=== PATIENT | male | born 1970 | race Caucasian/White ===

== ENCOUNTER 2021-04-16 05:55 | Inpatient (IN) ==
[2021-04-16 07:22] LABS: Basophils % 0.6 %; Eosinophils # 0.2 K/mcL (0.0-0.6); Eosinophils % 2.4 %; Hematocrit 42.1 % (37.5-50.1); Hemoglobin 14.4 g/dL (12.9-16.9); Immature Granulocytes % 1.3 % (0-4); Lymphocytes # 1.6 K/mcL (0.6-4.6); Mean Corpuscular HGB Conc 34.2 g/dL (31.6-35.5); Mean Corpuscular Hemoglobin 31.6 pg (28.0-33.3); Mean Corpuscular Volume 92.3 fL (83.0-100.0); Mean Platelet Volume 10.1 fL (9.4-12.4); Monocytes # 0.8 K/mcL (0.0-1.3); Monocytes % 11.2 %; Neutrophils # 4.5 K/mcL (1.6-8.9); Platelet Count 223 K/mcL (140-400); Red Blood Count 4.56 M/mcL (4.19-5.50); Red Cell Distribution Width 13.3 % (11.5-14.5); Segmented Neutrophils % 62.5 %; White Blood Count 7.1 K/mcL (4.3-11.1)
[2021-04-16] MEDS ORDERED: *HR* HYDROmorphone (PF) 1 MG/ML SYRINGE IVP ONE (07:35)
[2021-04-16 07:40] LABS: BUN/Creatinine Ratio 19 (6-26); Blood Urea Nitrogen 18 mg/dL (6-20); Calcium 9.2 mg/dL (8.6-10.3); Carbon Dioxide 27 mEq/L (23-29); Chloride 104 mEq/L (98-107); Glucose 109 mg/dL (70-105); Osmolality,Calculated 288 (280-300); Potassium 3.9 mEq/L (3.5-5.1); Sodium 138 mEq/L (136-145); eGFR For African Americans > 60 (> 60); eGFR For Non-African Americans > 60 (> 60)
[2021-04-16 07:51] LABS: Bilirubin,Urine Negative (Negative); Blood,Urine Negative (Negative); Clarity,Urine Clear (Clear); Color,Urine Light-Yellow (Yellow); Glucose,Urine (UA) Normal (Normal); Ketones,Urine Negative (Negative); Leukocyte Esterase,Urine Negative (Negative); Nitrite,Urine Negative (Negative); PH,Urine 5.5 pH Units (5.0-8.0); Protein,Urine Negative (Neg-Trace); Specific Gravity,Urine 1.019 (1.010-1.025); Urobilinogen,Urine Normal (Normal)
[2021-04-16 10:58] LABS: INR 0.9; Prothrombin Time 10.1 Seconds (9.4-12.1)
[2021-04-16 11:00] LABS: Activated Partial Thrombo Time 29.7 Seconds (26.0-36.0)
[2021-04-16 11:30] LABS: Alanine Aminotransferase 12 Units/L (7-52); Albumin/Globulin Ratio 1.7 (1.1-2.2); Alkaline Phosphatase 129 Units/L (34-104); Aspartate Amino Transferase 23 Units/L (13-39); Bilirubin,Direct 0.1 mg/dL (0.0-0.2); Bilirubin,Indirect 0.5 mg/dL (0.0-1.0); Bilirubin,Total 0.6 mg/dL (0.3-1.0); Globulin 2.4 g/dL (2.4-3.5); Total Protein 6.4 g/dL (6.4-8.9); Troponin I < 0.03 ng/mL (< 0.04)
[2021-04-16] MEDS ORDERED: Naloxone 0.4 MG/ML INJ IVP PRN (11:44)
[2021-04-16] MEDS ORDERED: Ondansetron 4 MG/2 ML VIAL IVP PRN (11:44)
[2021-04-16 11:46] LABS: Influenza A PCR Negative (Negative); Influenza B PCR Negative (Negative); Resp. Syncytial Virus PCR Negative (Negative)
[2021-04-16] MEDS ORDERED: KETAMINE IVC ONE ×2 (11:51→13:00)
[2021-04-16] MEDS ORDERED: SODIUM CHLORIDE 0.9% IVC ONE ×2 (11:51→13:00)
[2021-04-16 11:54] LABS: SARS-CoV-2 by PCR (In House) Positive (Negative)
[2021-04-16] MEDS ORDERED: Ketorolac 30 MG/ML VIAL IVP PRN (12:27)
[2021-04-16] MEDS: Carbidopa/Levodopa 25/100 TABLET PO SCH ×2 (14:00→16:48)
[2021-04-16] MEDS: *HR* HYDROmorphone 2 MG/ML SYRINGE IVP PRN ×2 (16:49→21:37)
[2021-04-16] MEDS: Carbidopa/Levodopa ER 50/200 TABLET PO SCH ×2 (16:49→19:55)
[2021-04-16] MEDS: Melatonin 3 MG TABLET PO SCH (19:54)
[2021-04-16] MEDS: *HR* Heparin 5,000 UNIT/ML VIAL SQ SCH (19:56)
[2021-04-17] MEDS: *HR* HYDROmorphone 2 MG/ML SYRINGE IVP PRN ×4 (03:06→18:42)
[2021-04-17] MEDS: Carbidopa/Levodopa ER 50/200 TABLET PO SCH ×4 (04:01→20:48)
[2021-04-17] MEDS: Carbidopa/Levodopa 25/100 TABLET PO SCH ×4 (04:01→15:57)
[2021-04-17] MEDS: *HR* Heparin 5,000 UNIT/ML VIAL SQ SCH ×2 (05:42→17:49)
[2021-04-17] MEDS ORDERED: NON-FORMULARY MEDICATION 1 EACH EACH (Omega-3/Dha/Epa/Fish Oil [Fish Oil 1,000 Mg Softgel] PO SCH (09:00)
[2021-04-17 09:09] LABS: Basophils % 0.1 %; Eosinophils % 0.2 %; Hematocrit 41.2 % (37.5-50.1); Hemoglobin 13.9 g/dL (12.9-16.9); Immature Granulocytes % 0.8 % (0-4); Lymphocytes % 9.6 %; Mean Corpuscular HGB Conc 33.7 g/dL (31.6-35.5); Mean Corpuscular Hemoglobin 31.4 pg (28.0-33.3); Mean Platelet Volume 10.3 fL (9.4-12.4); Monocytes % 8.8 %; Neutrophils # 8.7 K/mcL (1.6-8.9); Platelet Count 240 K/mcL (140-400); Red Blood Count 4.43 M/mcL (4.19-5.50); Red Cell Distribution Width 13.2 % (11.5-14.5); Segmented Neutrophils % 80.5 %
[2021-04-17 09:12] LABS: White Blood Count 10.8 K/mcL (4.3-11.1)
[2021-04-17 09:27] LABS: BUN/Creatinine Ratio 27 (6-26); Blood Urea Nitrogen 27 mg/dL (6-20); Calcium 9.1 mg/dL (8.6-10.3); Carbon Dioxide 27 mEq/L (23-29); Chloride 102 mEq/L (98-107); Glucose 112 mg/dL (70-105); Magnesium 2.1 mg/dL (1.6-2.6); Osmolality,Calculated 288 (280-300); Phosphorous 3.4 mg/dL (2.7-4.5); Potassium 4.3 mEq/L (3.5-5.1); Sodium 136 mEq/L (136-145); eGFR For African Americans > 60 (> 60); eGFR For Non-African Americans > 60 (> 60)
[2021-04-17] MEDS: Fluticasone Propionate Nasal 50 MCG/SPRAY BOTTLE NS SCH (09:59)
[2021-04-17] MEDS: Aspirin Enteric Coated 81 MG Tablet PO SCH (09:59)
[2021-04-17] MEDS: predniSONE 20 MG TABLET PO SCH (09:59)
[2021-04-17] MEDS: lisinopriL 10 MG TABLET PO SCH (10:00)
[2021-04-17] MEDS: FLUoxetine HCl 10 MG CAPSULE PO SCH (10:00)
[2021-04-17] MEDS: Metoprolol XL (24 HR) Succ 50 MG TAB.ER.24H PO SCH (10:00)
[2021-04-17] MEDS: Melatonin 3 MG TABLET PO SCH (20:48)
[2021-04-18] MEDS: *HR* HYDROmorphone 2 MG/ML SYRINGE IVP PRN (02:57)
[2021-04-18] MEDS: Carbidopa/Levodopa ER 50/200 TABLET PO SCH ×3 (02:58→20:50)
[2021-04-18] MEDS: Carbidopa/Levodopa 25/100 TABLET PO SCH ×3 (02:58→16:21)
[2021-04-18] MEDS: *HR* Heparin 5,000 UNIT/ML VIAL SQ SCH (05:07)
[2021-04-18] MEDS ORDERED: Polymyxin B Sulfate 500,000 UNIT, Sodium Chloride IRRigation 1,000 ML IR ONE (08:00)
[2021-04-18] MEDS: Aspirin Enteric Coated 81 MG Tablet PO SCH (08:41)
[2021-04-18] MEDS: lisinopriL 10 MG TABLET PO SCH (08:44)
[2021-04-18] MEDS: Metoprolol XL (24 HR) Succ 50 MG TAB.ER.24H PO SCH (08:52)
[2021-04-18] MEDS: predniSONE 20 MG TABLET PO SCH (08:52)
[2021-04-18] MEDS: Fluticasone Propionate Nasal 50 MCG/SPRAY BOTTLE NS SCH (08:57)
[2021-04-18] MEDS: FLUoxetine HCl 10 MG CAPSULE PO SCH (08:57)
[2021-04-18] MEDS ORDERED: CeFAZolin Syr 2,000MG/20 ML 2,000 MG/20 ML SYRINGE IVPB ONE (09:25)
[2021-04-18] MEDS ORDERED: Ringers Solution, Lactated 1,000 ML IVC SCH ×2 (09:30→16:57)
[2021-04-18] MEDS ORDERED: Ondansetron 4 MG/2 ML VIAL ONE (09:38)
[2021-04-18] MEDS ORDERED: Lidocaine -MPF 4% 5 ML AMPUL ONE (09:38)
[2021-04-18] MEDS ORDERED: *HR* Remifentanil 2 MG VIAL IVP ONE ×2 (09:38→13:33)
[2021-04-18] MEDS ORDERED: Lidocaine -MPF 2% 5 ML VIAL ONE (09:38)
[2021-04-18] MEDS ORDERED: tiZANidine 4 MG TABLET PO PRN (09:39)
[2021-04-18] MEDS ORDERED: *HR* Propofol 200 MG/20 ML VIAL IVP ONE (09:39)
[2021-04-18] MEDS ORDERED: *HR* OxyCODONE Immed Rel 5 MG TABLET PO ONE (09:39)
[2021-04-18] MEDS ORDERED: *HR* FentaNYL (PF) 100 MCG/2 ML VIAL ONE ×2 (09:39→11:09)
[2021-04-18] MEDS ORDERED: *HR* Midazolam HCl 2 MG/2 ML VIAL ONE (09:39)
[2021-04-18] MEDS ORDERED: *HR* FentaNYL (PF) 100 MCG/2 ML VIAL IVP PRN (09:50)
[2021-04-18] MEDS ORDERED: Albuterol 2.5 MG/3 ML NEBULIZER IH PRN (09:50)
[2021-04-18] MEDS ORDERED: DEXMEDETOMIDINE ONE (09:57)
[2021-04-18] MEDS ORDERED: Ketamine HCL *QUVA* 50mg (1mL) SYRINGE ONE (09:57)
[2021-04-18] MEDS ORDERED: NACL ONE (09:57)
[2021-04-18] MEDS: tiZANidine 4 MG TABLET PO SCH ×2 (10:10→16:21)
[2021-04-18] MEDS ORDERED: Lacri-Lube 3.5 GM TUBE ONE (10:44)
[2021-04-18] MEDS ORDERED: Vancomycin 1,000 MG VIAL ONE (14:35)
[2021-04-18] MEDS ORDERED: *HR* HYDROMORPHONE 2 MG/ML VIAL ONE (14:44)
[2021-04-18] MEDS ORDERED: Ondansetron 4 MG/2 ML VIAL IVP PRN ×2 (15:25→16:57)
[2021-04-18] MEDS: *HR* HYDROmorphone PF 0.5 MG/0.5 ML SYRINGE IVP PRN ×2 (16:00→16:19)
[2021-04-18] MEDS ORDERED: *HR* HYDROcodone/Acet 5/325 mg TABLET PO PRN (16:57)
[2021-04-18] MEDS ORDERED: Naloxone 0.4 MG/ML INJ IVP PRN (16:57)
[2021-04-18] MEDS ORDERED: Acetaminophen 325 MG TABLET PO PRN (16:57)
[2021-04-18] MEDS: *HR* OxyCODONE Immed Rel 5 MG TABLET PO PRN ×2 (17:51→22:03)
[2021-04-18] MEDS ORDERED: CeFAZolin 2 GM/120 ML BAG IVPB SCH (18:00)
[2021-04-18] MEDS: Vitamin E 200 UNIT (90MG) CAPSULE PO SCH (20:49)
[2021-04-18] MEDS: CeFAZolin 2 GM/120 ML BAG IVPB SCH (20:50)
[2021-04-18] MEDS: Famotidine 20 MG TABLET PO SCH (20:50)
[2021-04-19] MEDS ORDERED: Ketorolac 30 MG/ML VIAL IVP ONE (01:19)
[2021-04-19] MEDS: diazePAM 10 MG TABLET PO PRN ×3 (01:31→21:24)
[2021-04-19] MEDS: Carbidopa/Levodopa ER 50/200 TABLET PO SCH ×4 (03:28→20:09)
[2021-04-19] MEDS: Carbidopa/Levodopa 25/100 TABLET PO SCH ×3 (03:28→11:57)
[2021-04-19] MEDS: CeFAZolin 2 GM/120 ML BAG IVPB SCH (03:29)
[2021-04-19] MEDS: *HR* OxyCODONE Immed Rel 5 MG TABLET PO PRN ×5 (05:05→23:16)
[2021-04-19] MEDS: Multivit/Ca/Min/Fe/FA 1 TAB TABLET PO SCH (08:45)
[2021-04-19] MEDS: Vitamin E 200 UNIT (90MG) CAPSULE PO SCH ×2 (08:45→20:09)
[2021-04-19] MEDS: Famotidine 20 MG TABLET PO SCH ×2 (08:46→20:09)
[2021-04-19] MEDS: Loratadine 10 MG TABLET PO SCH (08:46)
[2021-04-19] MEDS: Fluticasone Propionate Nasal 50 MCG/SPRAY BOTTLE NS SCH (09:40)
[2021-04-19] MEDS ORDERED: Carbidopa/Levodopa 25/100 TABLET PO SCH (16:00)
[2021-04-19] MEDS ORDERED: Acetaminophen IV 500 MG/50 ML BAG IVPB SCH (18:00)
[2021-04-19] MEDS ORDERED: Acetaminophen IV 500 MG/50 ML BAG IVPB PRN (22:03)
[2021-04-20] MEDS: Carbidopa/Levodopa 25/100 TABLET PO SCH ×3 (03:22→12:25)
[2021-04-20] MEDS: Carbidopa/Levodopa ER 50/200 TABLET PO SCH ×2 (03:22→11:23)
[2021-04-20] MEDS: *HR* OxyCODONE Immed Rel 5 MG TABLET PO PRN ×3 (03:22→12:59)
[2021-04-20] MEDS: diazePAM 10 MG TABLET PO PRN (08:21)
[2021-04-20] MEDS: Vitamin E 200 UNIT (90MG) CAPSULE PO SCH (08:21)
[2021-04-20] MEDS: Famotidine 20 MG TABLET PO SCH (08:21)
[2021-04-20] MEDS: Multivit/Ca/Min/Fe/FA 1 TAB TABLET PO SCH (08:22)
[2021-04-20] MEDS: Loratadine 10 MG TABLET PO SCH (08:22)
[2021-04-20] MEDS: Fluticasone Propionate Nasal 50 MCG/SPRAY BOTTLE NS SCH (08:22)
[2021-04-20 11:10] LABS: Influenza A PCR Negative (Negative); Influenza B PCR Negative (Negative); Resp. Syncytial Virus PCR Negative (Negative)
[2021-04-20 11:11] LABS: SARS-CoV-2 by PCR (In House) Positive (Negative)
[2021-04-20 11:27] VITALS: BP 120/79; PULSE 99; TEMP 98.9; O2SAT 99
== END 2021-04-20 13:04 | DRG 28 ==
LOC: EMEROOARM 05:55 → 4WAOSI 05:55 → SUATTDRO 12:12 → 4WAOSI 13:38
PROVIDERS: ADMIT Student in an Organized Health Care Education/Training Program; ATTEND Internal Medicine

== ENCOUNTER 2021-11-13 17:08 | Observation (INO) ==
[2021-11-13] MEDS ORDERED: diazePAM 5 MG TABLET PO ONE (21:09)
[2021-11-13 21:24] LABS: Basophils % 0.5 %; Eosinophils # 0.3 K/mcL (0.0-0.6); Eosinophils % 5.5 %; Hematocrit 43.9 % (37.5-50.1); Hemoglobin 14.8 g/dL (12.9-16.9); Immature Granulocytes % 0.4 % (0-4); Lymphocytes # 1.3 K/mcL (0.6-4.6); Lymphocytes % 22.3 %; Mean Corpuscular HGB Conc 33.7 g/dL (31.6-35.5); Mean Corpuscular Hemoglobin 31.1 pg (28.0-33.3); Mean Corpuscular Volume 92.2 fL (83.0-100.0); Mean Platelet Volume 10.1 fL (9.4-12.4); Monocytes # 0.7 K/mcL (0.0-1.3); Monocytes % 12.4 %; Neutrophils # 3.3 K/mcL (1.6-8.9); Platelet Count 227 K/mcL (140-400); Red Blood Count 4.76 M/mcL (4.19-5.50); Red Cell Distribution Width 13.4 % (11.5-14.5); Segmented Neutrophils % 58.9 %; White Blood Count 5.7 K/mcL (4.3-11.1)
[2021-11-13 21:42] LABS: BUN/Creatinine Ratio 16 (6-26); Blood Urea Nitrogen 14 mg/dL (6-20); Calcium 9.4 mg/dL (8.6-10.3); Carbon Dioxide 29 mEq/L (23-29); Chloride 105 mEq/L (98-107); Glucose 93 mg/dL (70-105); Osmolality,Calculated 280 (280-300); Potassium 4.2 mEq/L (3.5-5.1); Sodium 135 mEq/L (136-145)
[2021-11-13 23:00] LABS: Bacteria,Urine Few per hpf (None-Few); Bilirubin,Urine Negative (Negative); Blood,Urine Trace (Negative); Clarity,Urine Ex.Turbid (Clear); Color,Urine Yellow (Yellow); Glucose,Urine (UA) Normal (Normal); Ketones,Urine Negative (Negative); Leukocyte Esterase,Urine Large (Negative); Mucus,Urine Few per lpf (None-Few); Nitrite,Urine Positive (Negative); Protein,Urine Trace mg/dL (Neg-Trace); RBC,Urine 30-50 per hpf (0-3); Specific Gravity,Urine 1.013 (1.010-1.025); Sperm,Urine Present per hpf (None Seen); Transitional Epi Cells,Urine Few per hpf (None-Few); Urobilinogen,Urine Normal (Normal); WBC,Urine TNTC per hpf (0-3)
[2021-11-14] MEDS ORDERED: cefTRIAXone 1,000 MG in Water for inj. (sterile) 10 ML IVP ONE (00:52)
[2021-11-14] MEDS ORDERED: *HR* OxyCODONE Immed Rel 5 MG TABLET PO ONE (01:08)
[2021-11-14] MEDS ORDERED: Morphine Sulfate 2 MG/ML SYRINGE IVP ONE (02:16)
[2021-11-14] MEDS ORDERED: *HR* HYDROmorphone (PF) 1 MG/ML SYRINGE IVP ONE ×2 (04:01→12:58)
[2021-11-14] MEDS ORDERED: Acetaminophen 325 MG TABLET PO PRN ×2 (04:52→12:59)
[2021-11-14] MEDS ORDERED: Melatonin 3 MG TABLET PO PRN (04:52)
[2021-11-14] MEDS ORDERED: *HR* OxyCODONE Immed Rel 5 MG TABLET PO PRN ×4 (04:52→12:59)
[2021-11-14] MEDS ORDERED: Naloxone 0.4 MG/ML INJ IVP PRN (04:52)
[2021-11-14] MEDS: *HR* Heparin 5,000 UNIT/ML VIAL SQ SCH ×2 (06:08→17:12)
[2021-11-14] MEDS ORDERED: Gadolinium Contrast Agent (WT Based) IV PRN ×2 (08:46→09:16)
[2021-11-14] MEDS: Sennosides/Docusate Sodium TABLET PO SCH ×2 (09:25→21:26)
[2021-11-14] MEDS: lisinopriL 10 MG TABLET PO SCH (09:26)
[2021-11-14] MEDS: FLUoxetine HCl 10 MG CAPSULE PO SCH (09:26)
[2021-11-14] MEDS: Metoprolol XL (24 HR) Succ 25 MG TAB.ER.24H PO SCH (09:26)
[2021-11-14] MEDS: Famotidine 20 MG TABLET PO SCH ×2 (09:26→21:27)
[2021-11-14] MEDS ORDERED: diazePAM 10 MG/2 ML SYRINGE IVP STA (10:27)
[2021-11-14] MEDS: Carbidopa/Levodopa 25/100 TABLET PO SCH ×2 (11:28→15:10)
[2021-11-14] MEDS ORDERED: Ketorolac 30 MG/ML VIAL IVP ONE (12:47)
[2021-11-14] MEDS ORDERED: Carbidopa/Levodopa 25/100 TABLET PO SCH (16:00)
[2021-11-14] MEDS: Ketorolac 30 MG/ML VIAL IVP SCH (17:12)
[2021-11-14] MEDS: methylPREDNISolone 500 MG in 0.9 % Sodium Chloride 50 ML IVPB SCH (17:13)
[2021-11-14] MEDS ORDERED: methylPREDNISolone 125 MG/2 ML VIAL IVP SCH (18:00)
[2021-11-14] MEDS: *HR* OxyCODONE Immed Rel 5 MG TABLET PO PRN (21:27)
[2021-11-14] MEDS: cefTRIAXone 1,000 MG in 0.9 % Sodium Chloride Mini Bag 100 ML IVPB SCH (21:29)
[2021-11-15] MEDS: Ketorolac 30 MG/ML VIAL IVP SCH ×2 (00:16→06:27)
[2021-11-15] MEDS: *HR* OxyCODONE Immed Rel 5 MG TABLET PO PRN (04:11)
[2021-11-15] MEDS: Carbidopa/Levodopa 25/100 TABLET PO SCH ×3 (04:11→12:10)
[2021-11-15 05:18] VITALS: TEMP 97.6
[2021-11-15 05:53] LABS: Hematocrit 43.4 % (37.5-50.1); Hemoglobin 14.7 g/dL (12.9-16.9); Mean Corpuscular HGB Conc 33.9 g/dL (31.6-35.5); Mean Corpuscular Hemoglobin 31.3 pg (28.0-33.3); Mean Corpuscular Volume 92.5 fL (83.0-100.0); Mean Platelet Volume 10.2 fL (9.4-12.4); Platelet Count 262 K/mcL (140-400); Red Blood Count 4.69 M/mcL (4.19-5.50); Red Cell Distribution Width 13.4 % (11.5-14.5)
[2021-11-15 06:17] LABS: Magnesium 2.1 mg/dL (1.6-2.6); Phosphorous 3.4 mg/dL (2.7-4.5)
[2021-11-15 06:19] LABS: Calcium 9.4 mg/dL (8.6-10.3); Potassium 4.3 mEq/L (3.5-5.1)
[2021-11-15] MEDS: *HR* Heparin 5,000 UNIT/ML VIAL SQ SCH (06:27)
[2021-11-15] MEDS: methylPREDNISolone 500 MG in 0.9 % Sodium Chloride 50 ML IVPB SCH (06:29)
[2021-11-15 06:39] LABS: Folate > 22.3 ng/mL (3.0-16.0); Vitamin B12 567 pg/mL (250-1100)
[2021-11-15] MEDS: Sennosides/Docusate Sodium TABLET PO SCH (07:37)
[2021-11-15] MEDS: cefTRIAXone 1,000 MG in 0.9 % Sodium Chloride Mini Bag 100 ML IVPB SCH (07:37)
[2021-11-15] MEDS: Metoprolol XL (24 HR) Succ 25 MG TAB.ER.24H PO SCH (07:37)
[2021-11-15] MEDS: FLUoxetine HCl 10 MG CAPSULE PO SCH (07:37)
[2021-11-15] MEDS: Famotidine 20 MG TABLET PO SCH (07:37)
[2021-11-15] MEDS: lisinopriL 10 MG TABLET PO SCH (07:39)
[2021-11-15 10:52] VITALS: BP 138/81; PULSE 79; O2SAT 96
== END 2021-11-15 14:35 | disposition home or self-care (01) ==
LOC: 4WAOSI 17:08 → 3BNU 17:08 → EMEROOARM 17:08 → SUATTDRO 11-14 12:08 → 3BNU 11-14 14:41
PROVIDERS: ADMIT Pharmacist; ATTEND Internal Medicine

== ENCOUNTER 2021-12-13 07:30 | Observation (INO) ==
[2021-12-13] MEDS ORDERED: Melatonin 3 MG TABLET PO PRN (11:13)
[2021-12-13] MEDS ORDERED: Acetaminophen 325 MG TABLET PO PRN (11:13)
[2021-12-13] MEDS ORDERED: Ondansetron 4 MG/2 ML VIAL IVP PRN (11:13)
[2021-12-13] MEDS: Metoprolol XL (24 HR) Succ 50 MG TAB.ER.24H PO SCH (13:55)
[2021-12-13] MEDS: Carbidopa/Levodopa [Carbidopa-Levo Er 25-100 Tab] PO SCH (18:46)
[2021-12-13] MEDS ORDERED: Carbidopa/Levodopa [Carbidopa-Levo Er 25-100 Tab] PO SCH (21:00)
[2021-12-13] MEDS: Carbidopa/Levodopa 25/100 TABLET PO SCH (21:45)
[2021-12-14 05:00] LABS: Hematocrit 36.9 % (37.5-50.1); Hemoglobin 12.4 g/dL (12.9-16.9); Mean Corpuscular HGB Conc 33.6 g/dL (31.6-35.5); Mean Corpuscular Hemoglobin 30.3 pg (28.0-33.3); Mean Corpuscular Volume 90.2 fL (83.0-100.0); Platelet Count 280 K/mcL (140-400); Red Blood Count 4.09 M/mcL (4.19-5.50); Red Cell Distribution Width 13.7 % (11.5-14.5); White Blood Count 6.9 K/mcL (4.3-11.1)
[2021-12-14 05:22] LABS: Alanine Aminotransferase 6 Units/L (7-52); Albumin 3.9 g/dL (3.5-5.7); Albumin/Globulin Ratio 1.4 (1.1-2.2); Alkaline Phosphatase 173 Units/L (34-104); Aspartate Amino Transferase 13 Units/L (13-39); BUN/Creatinine Ratio 19 (6-26); Bilirubin,Total 0.9 mg/dL (0.3-1.0); Blood Urea Nitrogen 17 mg/dL (6-20); Calcium 9.6 mg/dL (8.6-10.3); Carbon Dioxide 26 mEq/L (23-29); Chloride 102 mEq/L (98-107); Globulin 2.7 g/dL (2.4-3.5); Glucose 110 mg/dL (70-105); Osmolality,Calculated 284 (280-300); Phosphorous 3.5 mg/dL (2.7-4.5); Potassium 3.9 mEq/L (3.5-5.1); Sodium 136 mEq/L (136-145); Total Protein 6.6 g/dL (6.4-8.9)
[2021-12-14 06:05] VITALS: BP 123/81; PULSE 60; TEMP 97.8; O2SAT 95
[2021-12-14] MEDS: Carbidopa/Levodopa [Carbidopa-Levo Er 25-100 Tab] PO SCH ×2 (06:05→09:08)
[2021-12-14] MEDS: Carbidopa/Levodopa 25/100 TABLET PO SCH ×2 (06:06→09:06)
[2021-12-14] MEDS ORDERED: Fluticasone Propionate Nasal 50 MCG/SPRAY BOTTLE NS PRN ×2 (07:31→10:15)
[2021-12-14] MEDS ORDERED: Gabapentin 400 MG CAPSULE PO SCH (09:00)
[2021-12-14] MEDS ORDERED: levoFLOXacin 750 MG TABLET PO SCH (09:00)
[2021-12-14] MEDS ORDERED: Loratadine 10 MG TABLET PO SCH (09:00)
[2021-12-14] MEDS ORDERED: FLUoxetine HCl 10 MG CAPSULE PO SCH (09:00)
[2021-12-14] MEDS ORDERED: Famotidine 20 MG TABLET PO SCH (09:00)
[2021-12-14] MEDS: Metoprolol XL (24 HR) Succ 50 MG TAB.ER.24H PO SCH (09:05)
== END 2021-12-14 11:40 | disposition home or self-care (01) ==
LOC: 3ANU → SUATTDRO 10:59
PROVIDERS: ADMIT Internal Medicine; ATTEND Internal Medicine